=== PATIENT | male | born 1985 | race Caucasian/White ===

== ENCOUNTER 2018-06-02 13:07 | Emergency (ER) | payer SELFPAY ==
[2018-06-02] MEDS ORDERED: Ibuprofen 800 MG TAB ONE (13:21)
== END 2018-06-02 13:38 | disposition home or self-care (01) ==
LOC: BURERS 13:07
DX: J02.9 Acute pharyngitis, unspecified (principal); Z79.899 Other long term (current) drug therapy
CPT/HCPCS: 87081; 87430; 99283